=== PATIENT | female | born 1935 | race Caucasian/White ===

== ENCOUNTER 2017-09-06 02:20 | Emergency (ER) | payer OTHER, MEDICARE ==
[~2017-09-06] VITALS: Ht 152.4 cm; Wt 63.5 kg
[~2017-09-06 02:20] MED LIST: BACTRIM DS TAB1 EACH PO; [UNRECOGNIZED DRUG - OTHER] PO
[2017-09-06] MEDS ORDERED: FLUOROURACIL40 GM (02:33)
[2017-09-06] MEDS ORDERED: PROLIA60 MG/1 ML (02:34)
[2017-09-06] MEDS ORDERED: TIROSINT50 MCG PO (02:34)
[2017-09-06] MEDS ORDERED: CHILDREN'S ASPI81 MG PO (02:35)
[2017-09-06] MEDS ORDERED: TRAZODONE HCL50 MG PO (02:35)
[2017-09-06] MEDS ORDERED: KEFLEX500 M1 PO (02:53)
[2017-09-06] MEDS ORDERED: ACYCLOVIR 200200 MG PO (02:53)
[2017-09-06] MEDS ORDERED: PYRIDIUM200 MG PO (02:53)
[2017-09-06 03:01] LABS: URINE BLOOD 3+ (Negative); URINE CLARITY TURBID; URINE COLOR BROWN; URINE GLUCOSE-RANDOM* NEGATIVE (Negative); URINE KETONES TRACE (Negative); URINE PROTEIN (DIPSTICK) 3+ (Negative); URINE SPECIFIC GRAVITY 1.025 (1.005-1.035)
[2017-09-06 03:07] LABS: URINE LEUKOCYTES-REFLEX 2+ (Negative); URINE NITRITE-REFLEX POSITIVE (Negative)
[2017-09-06 03:08] LABS: ICTOTEST (BILI CONFIRMATORY) Negative (Negative); URINE BILIRUBIN NEGATIVE (Negative)
[2017-09-06 03:12] LABS: BACTERIA-REFLEX 1-9 Few /HPF (None Seen); CASTS None Seen /LPF (None Seen); CRYSTALS None Seen /LPF (None Seen); SQUAMOUS 0-3 Few /LPF (0-3); URINE RBC >20 Many /HPF (0-2)
== END 2017-09-06 04:14 | disposition home or self-care (01) ==
LOC: ER 02:20
PROVIDERS: Emergency Medicine
DX: N39.0 Urinary tract infection, site not specified (principal); B00.1 Herpesviral vesicular dermatitis

== ENCOUNTER → 2020-05-08 | Outpatient (CLI) | payer OTHER, MEDICARE ==
[~2020-05-08] MED LIST changes: +ACYCLOVIR 200200 MG PO; +CHILDREN'S ASPI81 MG PO; +FLUOROURACIL40 GM; +KEFLEX500 M1 PO; +PROLIA60 MG/1 ML; +PYRIDIUM200 MG PO; +TIROSINT50 MCG PO; +TRAZODONE HCL50 MG PO
== END ==
LOC: CAT 09:53
PROVIDERS: ATTEND Nurse Practitioner
DX: K58.2 Mixed irritable bowel syndrome (principal); N32.89 Other specified disorders of bladder; R19.5 Other fecal abnormalities; N85.8 Other specified noninflammatory disorders of uterus

== ENCOUNTER 2021-09-08 13:05 | Emergency (ER) | payer OTHER, MEDICARE ==
[~2021-09-08] VITALS: Ht 157.5 cm; Wt 55.8 kg
[2021-09-08 14:09] LABS: ABSOLUTE NEUTROPHILS 3.1 thou/uL (1.4-8.2); BASOPHILS 0.9 % (0.0-2.0); EOSINOPHILS 2.4 % (0.0-3.0); HEMOGLOBIN 12.7 gm/dL (12.0-15.0); LYMPHOCYTES 30.2 % (24.0-44.0); MCHC 33.3 g/dL (28.0-37.0); MCV 99.1 fL (80.0-100.0); MONOCYTES 12.2 % (1.0-8.0); PLATELET COUNT 202 thou/uL (150-400); POLYS 54.3 % (36.0-66.0); RBC 3.83 mil/uL (4.20-5.00); RDW 12.8 % (10.5-14.5); WBC 5.8 thou/uL (4.0-11.0)
[2021-09-08 14:19] LABS: CALCIUM 9.5 mg/dL (8.5-10.1); CREATININE 0.9 mg/dL (0.6-1.0); POTASSIUM 3.8 mmol/L (3.5-5.1)
[2021-09-08 14:25] LABS: TOTAL BILIRUBIN 0.3 mg/dL (0.2-1.0); TOTAL PROTEIN 6.7 g/dL (6.4-8.2)
[2021-09-08] MEDS ORDERED: CITRATE OF MAG296 M1 PO (15:03)
[2021-09-08] MEDS ORDERED: DULCOLAX10 MG RECTAL (15:03)
[2021-09-08 15:28] VITALS: BP 138/77
[2021-09-08 15:59] LABS: URINE BILIRUBIN NEGATIVE (Negative); URINE BLOOD NEGATIVE (Negative); URINE CLARITY CLEAR; URINE COLOR YELLOW; URINE GLUCOSE-RANDOM* NEGATIVE (Negative); URINE KETONES NEGATIVE (Negative); URINE NITRITE-REFLEX NEGATIVE (Negative); URINE PROTEIN (DIPSTICK) NEGATIVE (Negative); URINE SPECIFIC GRAVITY <= 1.005 (1.005-1.035); URINE UROBILINOGEN 0.2 E.U./dl (0.2-1.0)
[2021-09-08 16:00] LABS: URINE LEUKOCYTES-REFLEX 1+ (Negative)
[2021-09-08 16:16] LABS: BACTERIA-REFLEX 1-9 Few /HPF (None Seen); CASTS None Seen /LPF (None Seen); CRYSTALS None Seen /LPF (None Seen); SQUAMOUS 0-3 Few /LPF (0-3); URINE RBC 1-2 Rare /HPF (NONE SEEN); URINE WBC-REFLEX 0-5 Rare /HPF (0-5)
== END 2021-09-08 15:30 | disposition home or self-care (01) ==
LOC: ER 13:05
PROVIDERS: Physician Assistant
DX: K56.41 Fecal impaction (principal); Z79.82 Long term (current) use of aspirin; Z79.891 Long term (current) use of opiate analgesic; Z79.899 Other long term (current) drug therapy